=== PATIENT | male | born 1970 | race African-American/Black ===

== ENCOUNTER 2020-11-07 17:19 | Inpatient (IN) | payer MEDICAID, OTHER ==
[~2020-11-07] VITALS: Ht 172.7 cm; Wt 61.7 kg
[2020-11-07] MEDS ORDERED: VANCOMYCIN HCL 1000 MG VL IR ONE (19:00)
[2020-11-07] MEDS ORDERED: CEFEPIME 2 GM in SODIUM CHL 0.9% 50 ML IV ONE (19:00)
[2020-11-07 19:22] LABS: Basophils # (auto) 0 10 ^3/uL (0-0.2); Basophils % (auto) 0.6 % (0.0-2.0); Eosinophils # (auto) 0 10 ^3/uL (0-0.8); Eosinophils % (auto) 0.6 % (0.0-7.0); Hematocrit 28.4 % (41.0-53.0); Hemoglobin 9.6 g/dL (13.5-17.5); Lymphocytes # (auto) 1.1 10 ^3/uL (0.4-5.4); Lymphocytes % (auto) 17.9 % (10.0-50.0); Mean Corpuscular Volume 91.1 fL (80.0-100.0); Monocytes # (auto) 0.6 10 ^3/uL (0-1.3); Monocytes % (auto) 10.4 % (0.0-12.0); Neutrophils # (auto) 4.3 10 ^3/uL (1.6-8.6); Neutrophils % (auto) 70.5 % (37.0-80.0); Red Blood Cells 3.11 10^6/uL (4.5-5.90); Red Cell Distribution Width 17.1 % (11.8-14.3); White Blood Cell 6.1 10^3/uL (4.4-10.8)
[2020-11-07 19:39] LABS: Albumin 3.1 g/dL (3.4-5.0); Anion Gap 10 (5-15); Blood Urea Nitrogen 34 mg/dL (7-18); Calcium 7.4 mg/dL (8.5-10.1); Carbon Dioxide 25 mmol/L (21-32); Chloride 102 mmol/L (98-107); Glucose 83 mg/dL (74-106); Magnesium 2.7 mg/dL (1.6-2.6); Potassium 4.2 mmol/L (3.5-5.1); Sodium 137 mmol/L (136-145)
[2020-11-07 19:43] LABS: Alanine Aminotransferase 12 U/L (16-61); Alkaline Phosphatase 47 U/L (45-117); Aspartate Aminotransferase 11 U/L (15-37); BUN/Creatinine Ratio 4.3; Bilirubin, Total 0.3 mg/dL (0.2-1.0); GFR African American 9 mL/min; GFR Non-African American 8 mL/min; Total Protein 6.5 g/dL (6.4-8.2)
[2020-11-07] MEDS ORDERED: VANCOMYCIN 1GM/250ML 250 ML IV ONE ×2 (19:45)
[2020-11-07] MEDS ORDERED: VANCOMYCIN 1,500 MG in D5W 5% 250 ML IV ONE (20:00)
[2020-11-07] MEDS ORDERED: CALCIUM GLUC 1,000mg/50ml-NS 50 ML IV STA (21:38)
[2020-11-07] MEDS ORDERED: CALCIUM CHL 100MG/ML 1,000 MG in D5W 5% 100 ML IV ONE (21:45)
[2020-11-07] MEDS ORDERED: MORPHINE SULF INJ 2 MG/ML SYRINGE 1ML IV PRN (22:15)
[2020-11-07] MEDS ORDERED: HYDROcodone-ACET 5/325MG TAB PO PRN (22:15)
[2020-11-07] MEDS ORDERED: ACETAMINOPHEN 325 MG TAB PO PRN (22:15)
[2020-11-07] MEDS ORDERED: ONDANSETRON HCL 4 MG/2 ML VIAL IV PRN (22:15)
[2020-11-07] MEDS ORDERED: NITROGLYCERIN 0.4 MG SL TAB SL PRN (22:15)
[2020-11-07] MEDS ORDERED: DOCUSATE SOD 100 MG CAP PO PRN (22:15)
[2020-11-07] MEDS: CALCIUM GLUC 1,000mg/50ml-NS 50 ML IV SCH ×2 (22:32→23:05)
[2020-11-07 23:10] VITALS: BP 108/70
[2020-11-08 01:07] VITALS: BP 108/70
[2020-11-08] MEDS ORDERED: INFLUENZA QUAD 2020-2021 0.5 ML SYRG IM ONE (01:45)
[2020-11-08] MEDS ORDERED: PNEUMOCOCCAL VACC POLYS 25 MCG/0.5 ML VIAL IM ONE (02:00)
[2020-11-08 05:00] VITALS: BP 109/71
[2020-11-08] MEDS: SODIUM CHLOR 0.9% PF (SALINE LOCK) 10ML VIAL/SYR IV SCH ×3 (06:00→22:00)
[2020-11-08 07:08] LABS: Basophils # (auto) 0 10 ^3/uL (0-0.2); Basophils % (auto) 0.8 % (0.0-2.0); Eosinophils # (auto) 0.2 10 ^3/uL (0-0.8); Hematocrit 28.1 % (41.0-53.0); Hemoglobin 9.5 g/dL (13.5-17.5); Lymphocytes # (auto) 1.5 10 ^3/uL (0.4-5.4); Lymphocytes % (auto) 30.2 % (10.0-50.0); Mean Corpuscular Hemoglobin 31.2 pg (28.0-32.0); Mean Corpuscular Hgb Conc. 33.7 g/dL (32.0-36.0); Mean Corpuscular Volume 92.7 fL (80.0-100.0); Monocytes # (auto) 0.6 10 ^3/uL (0-1.3); Neutrophils # (auto) 2.8 10 ^3/uL (1.6-8.6); Red Blood Cells 3.04 10^6/uL (4.5-5.90); Red Cell Distribution Width 17.1 % (11.8-14.3); White Blood Cell 5.1 10^3/uL (4.4-10.8)
[2020-11-08 07:22] LABS: Potassium 4.4 mmol/L (3.5-5.1)
[2020-11-08 07:38] LABS: Albumin 2.8 g/dL (3.4-5.0); BUN/Creatinine Ratio 4.9; Bilirubin, Total 0.4 mg/dL (0.2-1.0); Calcium 7.2 mg/dL (8.5-10.1); Magnesium 2.7 mg/dL (1.6-2.6); Total Protein 6.2 g/dL (6.4-8.2)
[2020-11-08] MEDS: SEVELAMER 800 MG TAB PO SCH ×3 (08:00→18:06)
[2020-11-08 09:00] VITALS: BP 110/79
[2020-11-08] MEDS: ASCORBIC ACID 500 MG TAB PO SCH ×2 (09:08→22:07)
[2020-11-08] MEDS: B-COMPLEX W/ C & FOLIC ACID(NEPHROVITE TAB) PO SCH (09:08)
[2020-11-08] MEDS: ZINC SULFATE 220mg CAP or TAB PO SCH (09:08)
[2020-11-08] MEDS ORDERED: FAMOTIDINE 20 MG TAB PO SCH (10:00)
[2020-11-08] MEDS ORDERED: CEFEPIME 1 GM in SODIUM CHL 0.9% 50 ML IV SCH (10:00)
[2020-11-08] MEDS: HEPARIN SODIUM (PORCINE) 5000 UNITS/ML 1ML VIAL SC SCH ×2 (11:53→22:07)
[2020-11-08 12:51] VITALS: BP 115/86
[2020-11-08 16:42] VITALS: BP 113/78
[2020-11-08 22:00] VITALS: BP 124/85
[2020-11-09 05:00] VITALS: BP 121/85
[2020-11-09] MEDS: SODIUM CHLOR 0.9% PF (SALINE LOCK) 10ML VIAL/SYR IV SCH ×2 (06:00→13:18)
[2020-11-09 06:53] LABS: Basophils # (auto) 0 10 ^3/uL (0-0.2); Basophils % (auto) 0.9 % (0.0-2.0); Eosinophils # (auto) 0.1 10 ^3/uL (0-0.8); Eosinophils % (auto) 3.4 % (0.0-7.0); Hemoglobin 10.5 g/dL (13.5-17.5); Lymphocytes # (auto) 1.4 10 ^3/uL (0.4-5.4); Lymphocytes % (auto) 33.8 % (10.0-50.0); Mean Corpuscular Hemoglobin 30.8 pg (28.0-32.0); Mean Corpuscular Hgb Conc. 33.7 g/dL (32.0-36.0); Mean Corpuscular Volume 91.4 fL (80.0-100.0); Monocytes # (auto) 0.4 10 ^3/uL (0-1.3); Monocytes % (auto) 9.7 % (0.0-12.0); Neutrophils # (auto) 2.1 10 ^3/uL (1.6-8.6); Neutrophils % (auto) 52.2 % (37.0-80.0); Red Cell Distribution Width 16.4 % (11.8-14.3)
[2020-11-09] MEDS ORDERED: SODIUM CHL 0.9% 1000 ML BAG XX ONE (07:00)
[2020-11-09 07:17] LABS: BUN/Creatinine Ratio 5.3; Calcium 7.7 mg/dL (8.5-10.1); Phosphorus 7.9 mg/dL (2.5-4.90); Potassium 4.7 mmol/L (3.5-5.1)
[2020-11-09 07:22] LABS: % Iron Saturation 24.9 % (20-55)
[2020-11-09 07:24] LABS: Cholesterol 204 mg/dL (< 200)
[2020-11-09 07:27] LABS: HDL Cholesterol 64 mg/dL (40-59); LDL Cholesterol 128 mg/dL (< 100); Triglycerides 108 mg/dL (< 150)
[2020-11-09] MEDS: SEVELAMER 800 MG TAB PO SCH ×2 (08:13→12:00)
[2020-11-09 09:00] VITALS: BP 120/80
[2020-11-09] MEDS: HEPARIN SODIUM (PORCINE) 5000 UNITS/ML 1ML VIAL SC SCH (10:00)
[2020-11-09] MEDS: ASCORBIC ACID 500 MG TAB PO SCH (10:15)
[2020-11-09] MEDS: ZINC SULFATE 220mg CAP or TAB PO SCH (10:15)
[2020-11-09] MEDS: B-COMPLEX W/ C & FOLIC ACID(NEPHROVITE TAB) PO SCH (10:15)
[2020-11-09] MEDS ORDERED: LISI2.5T47 PO (10:30)
[2020-11-09] MEDS ORDERED: OLAN2.5T2 PO (10:30)
[2020-11-09] MEDS ORDERED: SEVE800T8 PO (10:30)
[2020-11-09] MEDS ORDERED: CARV6.2551 PO (10:30)
[2020-11-09 12:58] VITALS: BP 138/92
[2020-11-09] MEDS ORDERED: PNEUMOCOCCAL VACC POLYS 25 MCG/0.5 ML VIAL IM ONE (17:15)
[2020-11-09 19:46] LABS: Hepatitis B Surface Antigen Positive (Negative)
[2020-11-09] MEDS ORDERED: EPOETIN ALFA-EPBX 10,000 UNIT/1ML VIAL SC ONE (21:00)
[2020-11-11 14:14] LABS: Hepatitis A Ab IgM Negative; Hepatitis B Core IgM Negative
[2020-11-11 14:15] LABS: Hepatitis C Antibody Negative (Negative)
== END 2020-11-09 17:16 | disposition home or self-care (01) | DRG 194 ==
LOC: EDBD 17:19 → ER 17:19 → TELE 22:02 → TELE-WESTW 23:20
PROVIDERS: ADMIT Nurse Practitioner Family; ATTEND Internal Medicine
DX: I13.2 Hypertensive heart and chronic kidney disease with heart failure and with stage 5 chronic kidney disease, or end stage renal disease (principal); I95.9 Hypotension, unspecified; N18.6 End stage renal disease; E83.41 Hypermagnesemia; E83.51 Hypocalcemia; E88.09 Other disorders of plasma-protein metabolism, not elsewhere classified; Z79.01 Long term (current) use of anticoagulants; E87.70 Fluid overload, unspecified; Z20.822 Contact with and (suspected) exposure to COVID-19; I50.33 Acute on chronic diastolic (congestive) heart failure; D63.1 Anemia in chronic kidney disease; F17.210 Nicotine dependence, cigarettes, uncomplicated; Z91.15 Patient's noncompliance with renal dialysis; Z99.2 Dependence on renal dialysis; Z79.899 Other long term (current) drug therapy; Z79.891 Long term (current) use of opiate analgesic
CPT/HCPCS: 36415; 71045; 80048; 80053; 80061; 80074; 82728; 83540; 83550; 83605; 83735; 84100; 84484; 85025; 85049; 87040; 87081; 87426; 90935; 93005; 96365; 96375; G0378; J1642; J7060